=== PATIENT | female | born 2005 | race Two or more races ===

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

== ENCOUNTER 2024-11-30 20:23 | Emergency (ER) | payer OTHER ==
[~2024-11-30] VITALS: Ht 160 cm; Wt 63.5 kg
[2024-11-30] MEDS ORDERED: CEFTRIAXONE SODIUM 1,000 MG VIAL IM STA (20:59)
[2024-11-30] MEDS ORDERED: CEFTRIAXONE SODIUM 1,000 MG VIAL ONE (21:05)
[2024-11-30] MEDS ORDERED: AMOX1TAB5 PO (21:12)
== END 2024-11-30 21:18 | disposition home or self-care (01) ==
LOC: EMR PED 21:15
DX: L03.031 Cellulitis of right toe (principal); Z91.018 Allergy to other foods